=== PATIENT | female | born 1970 | race Caucasian/White ===

== ENCOUNTER 2017-05-19 00:47 | Emergency (ER) | payer BC ==
[2017-05-19 00:52] VITALS: BP 118/75
--- NOTE | 2017-05-19 01:43 | EDM.PDOC ---
ED HPI GENERAL MEDICAL PROBLEM - General Chief Complaint: Chest Pain Stated Complaint: [facility] Time Seen by Provider: 05/19/17 00:57 Source of Information: Reports: Patient History Limitations: Reports: No Limitations - History of Present Illness INITIAL COMMENTS - FREE TEXT/NARRATIVE: The patient states that she developed sudden-onset sharp pain in her left chest while lying in bed around midnight tonight. It was not modifiable. The pain got progressively more intense, associated with shortness of breath and diaphoresis. She denies associated nausea or sense of impending doom. She got up , but thought that she might pass out. The pain improved by the time EMS got to her house, then waxed and waned since. At this time, she feels minimal pain. The patient denies a recent cough. She states that she occasionally has palpitations, but none for several weeks. No recent fever. No recent urinary symptoms. The patient reports similar chest pain in 2008 2009. She states that she ultimately underwent a coronary angiogram which demonstrated coronary spasm. She was prescribed nitroglycerin, and continues to take him to her. She has not had a stress test since. The patient states that she has a PCP, but does not recall their name. Left Chest Pain Score (Numeric/FACES): 10 - Related Data Allergies Allergy/AdvReac Type Severity Reaction Status Date / Time iodine Allergy Cannot Verified 05/19/17 00:50 Remember morphine Allergy Rash Verified 05/19/17 00:50 Penicillins Allergy Syncope Verified 05/19/17 00:50 prochlorperazine edisylate Allergy Anaphylactic Verified 05/19/17 00:50 [From Compazine] Shock prochlorperazine maleate Allergy Anaphylactic Verified 05/19/17 00:50 [From Compazine] Shock vancomycin Allergy Other Verified 05/19/17 00:50 Home Meds: Home Meds Gabapentin [Gabapentin] 800 mg PO TID 05/26/15 [History] Isosorbide Mononitrate [Imdur] 60 mg PO BID 05/26/15 [History] Metoprolol Succinate [Toprol XL] 25 mg PO BID 05/26/15 [History] Nitroglycerin [Nitrostat] 0.4 mg SL Q5M PRN 05/26/15 [History] amLODIPine [Norvasc] 2.5 mg PO DAILY 05/26/15 [History] DULoxetine [Cymbalta] 30 mg PO DAILY 05/19/17 [History] DULoxetine [Cymbalta] 60 mg PO DAILY 05/19/17 [History] Estrovive Herbal Menopause 2 cap PO ASDIRECTED 05/19/17 [History] Ibuprofen/Diphenhydramine Cit [Advil Pm Caplet] 2 cap PO BEDTIME PRN 05/19/17 [ History] Omeprazole 20 mg PO DAILY 05/19/17 [History] Primidone 50 mg PO TID 05/19/17 [History] Vital-Zymes Complete 2 cap PO ASDIRECTED 05/19/17 [History] lamoTRIgine [Lamotrigine] 25 mg PO ASDIRECTED 05/19/17 [History] Past Medical History HEENT History: Reports: Impaired Vision Other HEENT History: Wears glasses Cardiovascular History: Reports: Angina (Prinzmetal angina) BE[employer]ER [employer] P[employer]HER History: Reports: Neurological History: Reports: Migraines - Past Surgical History HEENT Surgical History: Reports: Oral Surgery ([place] teeth extraction), Tonsillectomy Cardiovascular Surgical History: Reports: Other (See Below) (Coronary angiogram 2008 or 2009. Implanted loop monitor, since removed) GI Surgical History: Reports: Cholecystectomy, Colonoscopy, EGD Female Surgical History: Reports: D&C (x 1) Neurological Surgical History: Reports: Lumbar Spine (L4/L5 anterior/posterior fusion) Social & Family History - Tobacco Use Smoking Status *Q: Former Smoker Years of Tobacco use: 13 Packs/Tins Daily: 1.5 Month/Year Tobacco Last Used: Quit 2000 Second Hand Smoke Exposure: No - Alcohol Use Alcohol Use History: Yes Days Per Week of Alcohol Use: 0 Alcohol Use Frequency: Socially - Recreational Drug Use Recreational Drug Use: No - Living Situation & Occupation Living situation: Reports: , with Spouse, with Family (4 kids) 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 ED EXAM, GENERAL - Physical Exam Exam: See Below Exam Limited By: No Limitations General Appearance: Alert, WD/WN, No Apparent Distress Eye Exam: Bilateral Eye: Normal Inspection Ears: Normal External Exam, Hearing Grossly Normal Nose: Normal Inspection, No Blood Throat/Mouth: Normal Inspection, Normal Lips, Normal Voice, No Airway Compromise Head: Atraumatic, Normocephalic Neck: Normal Inspection, Full Range of Motion Respiratory/Chest: No Respiratory Distress, Lungs Clear, Normal Breath Sounds, No Accessory Muscle Use, Other (The patient states that her left chest is "tender" it is not able to say whether or not it is the same pain that brought her to the ED) Cardiovascular: Normal Peripheral Pulses, Regular Rate, Rhythm, No Edema, No Gallop, No JVD, No Rub, Systolic Murmur (Holosystolic, grade 2/6, heard only at the left upper sternal border, consistent with PS) Peripheral Pulses: 4+: Radial (L), Radial (R) GI/Abdominal: Normal Bowel Sounds, Soft, Non-Tender, No Organomegaly, No Distention, No Abnormal Bruit, No Mass, Other (Obese) (Female) Exam: Deferred Rectal (Female) Exam: Deferred Back Exam: Normal Inspection, Full Range of Motion, NT Extremities: Normal Inspection, Normal Range of Motion, No Pedal Edema, Normal Capillary Refill Neurological: Alert, Oriented, Normal Cognition, No Motor/Sensory Deficits Psychiatric: Flat Affect Skin Exam: Warm, Dry, Intact, Normal Color, No Rash EKG INTERPRETATION EKG Date: 05/19/17 Time: 00:50 Rhythm: NSR Rate (Beats/Min): 71 [place]: Normal P-Wave: Present QRS: Normal ST-T: Normal QT: Normal Course - Vital Signs Last Recorded V/S: Last Vital Signs Temp 36.7 C 05/19/17 00:50 Pulse 71 05/19/17 00:50 Resp 15 05/19/17 00:50 BP 118/75 05/19/17 00:50 Pulse Ox 100 05/19/17 00:50 - Orders/Labs/Meds Orders: Active Orders 24 hr Category Date Time Status EKG Documentation Completion [RC] STAT Care 05/19/17 01:16 Active Chest 2V [CR] Stat Exams 05/19/17 01:16 Taken Labs: Laboratory Tests 05/19/17 05/19/17 05/19/17 Range/Units 00:52 00:52 00:52 WBC 10.68 H (3.98-10.04) K/mm3 RBC 4.65 (3.98-5.22) M/mm3 Hgb 14.0 (11.2-15.7) gm/L Hct 41.9 (34.1-44.9) % MCV 90.1 (79.4-94.8) fl MCH 30.1 (25.6-32.2) pg MCHC 33.4 (32.2-35.5) g/dl RDW Std Deviation 42.8 (36.4-46.3) fL Plt Count 324 (182-369) K/mm3 MPV 9.7 (9.4-12.3) fl Neutrophils % (Manual) 28 L (40-60) % Band Neutrophils % 0 (0-10) % Lymphocytes % (Manual) 40 (20-40) % Atypical Lymphs % 2 % Monocytes % (Manual) 5 (2-10) % Eosinophils % (Manual) 25 H (0.7-5.8) % Basophils % (Manual) 0 L (0.1-1.2) Platelet Estimate Adequate Plt Morphology Comment Normal RBC Morph Comment Normal PT 10.5 (8.0-13.0) SECONDS INR 0.98 APTT 26 (22-36) SECONDS D-Dimer, Quantitative 0.24 (0.19-0.59) mg/L Sodium 142 (136-145) mEq/L Potassium 3.8 (3.5-5.1) mEq/L Chloride 105 (98-107) mEq/L Carbon Dioxide 31 (21-32) mEq/L Anion Gap 9.8 (5-15) BUN 14 (7-18) mg/dL Creatinine 1.0 (0.55-1.02) mg/dL Est Cr Clr Drug Dosing 64.41 mL/min Estimated GFR (MDRD) 59 (>60) mL/min BUN/Creatinine Ratio 14.0 (14-18) Glucose 88 (74-106) mg/dL Calcium 8.6 (8.5-10.1) mg/dL Total Bilirubin 0.3 (0.2-1.0) mg/dL AST 43 H (15-37) U/L ALT 43 (14-59) U/L Alkaline Phosphatase 92 (46-116) U/L Troponin I < 0.017 (0.00-0.056) ng/mL NT-Pro-B Natriuret Pep (0-125) pg/mL Total Protein 6.9 (6.4-8.2) g/dl Albumin 4.0 (3.4-5.0) g/dl Globulin 2.9 gm/dL Albumin/Globulin Ratio 1.4 (1-2) 05/19/17 Range/Units 00:52 WBC (3.98-10.04) K/mm3 RBC (3.98-5.22) M/mm3 Hgb (11.2-15.7) gm/L Hct (34.1-44.9) % MCV (79.4-94.8) fl MCH (25.6-32.2) pg MCHC (32.2-35.5) g/dl RDW Std Deviation (36.4-46.3) fL Plt Count (182-369) K/mm3 MPV (9.4-12.3) fl Neutrophils % (Manual) (40-60) % Band Neutrophils % (0-10) % Lymphocytes % (Manual) (20-40) % Atypical Lymphs % % Monocytes % (Manual) (2-10) % Eosinophils % (Manual) (0.7-5.8) % Basophils % (Manual) (0.1-1.2) Platelet Estimate Plt Morphology Comment RBC Morph Comment PT (8.0-13.0) SECONDS INR APTT (22-36) SECONDS D-Dimer, Quantitative (0.19-0.59) mg/L Sodium (136-145) mEq/L Potassium (3.5-5.1) mEq/L Chloride (98-107) mEq/L Carbon Dioxide (21-32) mEq/L Anion Gap (5-15) BUN (7-18) mg/dL Creatinine (0.55-1.02) mg/dL Est Cr Clr Drug Dosing mL/min Estimated GFR (MDRD) (>60) mL/min BUN/Creatinine Ratio (14-18) Glucose (74-106) mg/dL Calcium (8.5-10.1) mg/dL Total Bilirubin (0.2-1.0) mg/dL AST (15-37) U/L ALT (14-59) U/L Alkaline Phosphatase (46-116) U/L Troponin I (0.00-0.056) ng/mL NT-Pro-B Natriuret Pep 138 H (0-125) pg/mL Total Protein (6.4-8.2) g/dl Albumin (3.4-5.0) g/dl Globulin gm/dL Albumin/Globulin Ratio (1-2) - Re-Assessments/Exams Free Text/Narrative Re-Assessment/Exam: 05/19/17 02:33 Two-view chest radiograph appears to be grossly normal. Cardiac silhouette is within normal limits. No pulmonary vascular congestion. No pleural effusions. No focal infiltrate. No pneumothorax. Formal read per the Radiologist pending. 05/19/17 02:35 Test results discussed with the patient and her . Today's workup is entirely unremarkable and does not explain the cause of the patient's pain. I suspect that it is musculoskeletal in etiology, however, I would like the patient to follow-up with her PCP to discuss the possibility of a stress test. The patient is agreeable. Departure - Departure Time of Disposition: 02:36 Disposition: Home, Self-Care 01 Condition: Good Clinical Impression: Chest pain of uncertain etiology - Discharge Information Referrals: Olivia Brooke MD [Primary Care Provider] - Forms: ED Department Discharge Additional Instructions: You were seen in the emergency room for sharp left-sided chest pain, shortness of breath, and sweatiness. Workup in the ER included blood work, a chest x-ray, and an ECG. The entire workup was unremarkable. You have not suffered a heart attack. You do not have a blood clot in your lungs. You do not have pneumonia or a collapsed lung. The cause of your chest pain is unclear, but is MOST LIKELY musculoskeletal in etiology. Take [id number] ibuprofen as needed for discomfort. We recommend that you follow-up with your PCP to discuss the possibility of getting a stress test. If any other problems, please do not hesitate to return to the ER. - My Orders Last 24 Hours: My Active Orders 05/19/17 01:16 EKG Documentation Completion [RC] STAT Chest 2V [CR] Stat - Assessment/Plan Last 24 Hours: My Active Orders 05/19/17 01:16 EKG Documentation Completion [RC] STAT Chest 2V [CR] Stat
[2017-05-19] MEDS ORDERED: Ibuprofen 600 MG Tab PO ONE (02:36)
--- NOTE | 2017-05-19 12:46 | CR ---
Chest: Two views of the chest were obtained. Comparison: Prior chest x-ray of 05/26/15. Heart size and mediastinum are within normal limits. Lungs are clear. Minimal scoliosis is present within the spine. Surgical clips are identified from prior cholecystectomy. Impression: 1. Nothing acute is appreciated on two-view chest x-ray. Diagnostic code #2
== END 2017-05-19 02:51 | disposition home or self-care (01) ==
LOC: JD.ED 00:47
DX: R07.9 Chest pain, unspecified (principal); Z88.5 Allergy status to narcotic agent; Z88.0 Allergy status to penicillin; Z88.1 Allergy status to other antibiotic agents; Z88.8 Allergy status to other drugs, medicaments and biological substances; Z79.899 Other long term (current) drug therapy; Z87.891 Personal history of nicotine dependence
CPT/HCPCS: 36415; 71046; 80053; 83880; 84484; 85025; 85379; 85610; 85730; 93005; 99285; A9270; 93010; 99284-25

== ENCOUNTER 2018-11-11 08:25 | Day surgery (SDC) | payer BC ==
[~2018-11-11 08:25] MED LIST: Lidocaine 1%/Sod Bicarbonate in NS 8.4% 1 ML Syringe IDERM PRN; Sodium Chloride 0.9% 10 ML Syringe FLUSH PRN
[2018-11-11] MEDS ORDERED: Scopolamine 1.5 MG Transdermal Patch TRDERM SCH (08:45)
[2018-11-11] MEDS: Lactated Ringers 1,000 ML IV SCH ×2 (08:55→11:49)
[2018-11-11] MEDS ORDERED: Ondansetron 4 MG/2 ML SDV ONE (09:10)
[2018-11-11] MEDS ORDERED: Rocuronium 50 MG/5 ML Vial ONE (09:10)
[2018-11-11] MEDS ORDERED: fentaNYL 250 MCG/5 ML SDV ONE (09:11)
[2018-11-11] MEDS ORDERED: Midazolam 1 MG/ML 2 ML SDV ONE (09:11)
[2018-11-11] MEDS ORDERED: Propofol 200 MG/20 ML SDV ONE (09:11)
[2018-11-11] MEDS ORDERED: Lidocaine 1% 4 ML ONE (09:11)
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
[2018-11-11] MEDS ORDERED: Sodium Chloride 0.9% 50 ML SDV ONE (09:13)
[2018-11-11] MEDS ORDERED: Lidocaine 1% with EPINEPHrine 1:100,000 20 ML MDV ONE (09:13)
[2018-11-11] MEDS ORDERED: ceFAZolin 1 GM Vial ONE (09:37)
[2018-11-11] MEDS ORDERED: Ketorolac 30 MG/ML SDV ONE (09:39)
[2018-11-11] MEDS ORDERED: HYDROmorphone 0.5 MG/0.5 ML Syringe ONE (10:06)
[2018-11-11] MEDS ORDERED: Dexamethasone 4 MG/ML 5 ML MDV ONE (10:07)
[2018-11-11] MEDS ORDERED: Lactated Ringers 1,000 ML ONE (10:19)
[2018-11-11] MEDS ORDERED: Acetaminophen/oxyCODONE 325-5 MG Tab PO PRN (10:55)
[2018-11-11] MEDS ORDERED: Ondansetron 4 MG/2 ML SDV IVPUSH PRN (10:55)
[2018-11-11] MEDS ORDERED: Ibuprofen 600 MG Tab PO PRN (10:55)
[2018-11-11] MEDS ORDERED: Ketorolac 30 MG/ML SDV IVPUSH SCH (11:00)
--- NOTE | 2018-11-11 11:00 | PCM.OPNOTE ---
- General Post-Op/Procedure Note Date of Surgery/Procedure: 11/11/18 Operative Procedure(s): 1. Exam under anesthesia. 2. Total vaginal hysterectomy with bilateral salpingo-oophorectomy Findings: Uterus is upper limits normal size. Fallopian tubes and ovaries were benign in appearance Pre Op Diagnosis: Postmenopausal uterine bleeding Post-Op Diagnosis: Same Anesthesia Technique: General ET Tube Other Anesthesia Type: Lidocaine quarter percent with [id number] mL total local Primary Surgeon: Mookie Peterson Secondary Surgeon: Mookie Rogers Anesthesia Provider: Bert Krishnan Meat Carrier: Juli Chang Reason Meat Carrier Was Necessary: Retraction, assistance, patient safety, quality of care Pathology: Uterus, bilateral tubes and ovaries Fluid Replacement, Intraop: 1,500 EBL in mLs: 100 Complications: None Condition: Good Free Text/Narrative:: Surgery duration: 33 minutes Procedure: The patient was placed in supine position on the operating table. General endotracheal anesthesia was accomplished. After positioning, and adequate prep and drape, the procedure was then performed. Sterile speculum was placed in the vagina and cervix was visualized. Cervix was injected with lidocaine quarter percent with epinephrine-20 mL used. A full circumference incision was made in the cervical epithelium. The bladder was pushed well back off cervix. Posterior cul-de-sac was then entered sharply without problems. Left uterosacral was crossclamped with a Enseal vessel closure system. The left uterosacral and then the right uterosacral ligament pedicles were developed using the Enseal system. The anterior cul-de-sac was then entered without problems and the uterine vasculature, cardinal ligament and broad ligament then developed using Enseal vessel closure system. The uterus was inverted at this time and upper broad ligament fallopian tube pedicles were crossclamped with Emerald clamps. Specimen was totally removed. Left and right fallopian tube was normal in appearance.. Using Enseal vessel closure system each of the ovaries and fallopian tubes were then removed and sent with the specimen. Each of these pedicles was ligated with #1 Vicryl suture. The patient was found to be hemostatically intact at this time. Vaginal cuff was sutured for hemostatic reasons with a running locked suture of 0 Monocryl from the 2 o'clock position to the 10 o'clock position posteriorly. Vaginal cuff was then closed from right to left side with a running locked suture of 0 Monocryl. Patient was returned to supine position and awakened from general endotracheal anesthesia. She tolerated the procedure and left the operating room in satisfactory condition.
[2018-11-11] MEDS ORDERED: HYDROmorphone 0.5 MG/0.5 ML Syringe IVPUSH PRN (11:06)
[2018-11-11] MEDS ORDERED: fentaNYL 100 MCG/2 ML SDV IVPUSH PRN (11:06)
[2018-11-11 13:37] VITALS: PULSE 68
[2018-11-11 14:58] VITALS: BP 121/72
== END 2018-11-11 14:55 | disposition home or self-care (01) ==
LOC: JD.SDS 08:25
PROVIDERS: ATTEND Obstetrics & Gynecology
DX: N80.0 Endometriosis of uterus (principal); N72 Inflammatory disease of cervix uteri; N73.6 Female pelvic peritoneal adhesions (postinfective); N83.312 Acquired atrophy of left ovary; N83.311 Acquired atrophy of right ovary; N83.8 Other noninflammatory disorders of ovary, fallopian tube and broad ligament; I10 Essential (primary) hypertension; G43.909 Migraine, unspecified, not intractable, without status migrainosus; I73.00 Raynaud's syndrome without gangrene; Z88.0 Allergy status to penicillin; Z88.8 Allergy status to other drugs, medicaments and biological substances; Z88.5 Allergy status to narcotic agent; Z88.1 Allergy status to other antibiotic agents; Z87.891 Personal history of nicotine dependence
CPT/HCPCS: 36415; 58262; 80053; 81003; 85025; 86850; 86900; 86901; 93005; A9270; J0690; J1100; J1170; J1885; J2001; J2250; J2405; J2704; J3010; J7120; 00944

== ENCOUNTER 2018-12-02 14:58 | Emergency (ER) | payer BC ==
[2018-12-02 15:05] VITALS: PULSE 68
[2018-12-02 15:07] VITALS: BP 129/79
[2018-12-02] MEDS ORDERED: FLU Vacc QS2019-20(6MOS+)/PF 60 MCG/0.5 ML SYRINGE IM ONE (15:15)
[2018-12-02] MEDS ORDERED: Sodium Chloride 0.9% 10 ML Syringe FLUSH PRN (15:37)
[2018-12-02] MEDS ORDERED: Sodium Chloride 0.9% 1,000 ML IV SCH (16:15)
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
== END 2018-12-02 18:55 | disposition home or self-care (01) ==
LOC: JD.ED 14:58
DX: I95.9 Hypotension, unspecified (principal); F32.9 Major depressive disorder, single episode, unspecified; Z88.5 Allergy status to narcotic agent; Z88.8 Allergy status to other drugs, medicaments and biological substances; Z88.0 Allergy status to penicillin; Z88.1 Allergy status to other antibiotic agents; Z79.899 Other long term (current) drug therapy; Z90.710 Acquired absence of both cervix and uterus; Z23 Encounter for immunization
CPT/HCPCS: 36415; 80053; 84484; 85025; 90471; 90686; 93005; 96360; 99284; J7040; 81001; 93010; 99283; G0008

== ENCOUNTER 2019-02-17 10:07 | Emergency (ER) | payer BC, OTHER ==
[2019-02-17] MEDS ORDERED: Sodium Chloride 0.9% 10 ML Syringe FLUSH PRN (10:24)
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
[2019-02-17] MEDS ORDERED: diphenhydrAMINE 50 MG/ML SDV IVPUSH ONE (10:59)
[2019-02-17] MEDS ORDERED: Metoclopramide 10 MG/2 ML SDV IVPUSH ONE (10:59)
[2019-02-17] MEDS ORDERED: Dextrose 5%-0.9% NaCl 1,000 ML IV SCH (11:00)
[2019-02-17] MEDS ORDERED: HYDROmorphone 1 MG/ML Syringe IVPUSH ONE (11:00)
--- NOTE | 2019-02-17 11:03 | CT ---
Head CT Technique: Multiple axial sections through the brain were obtained. Intravenous contrast was not utilized. Comparison: Prior head CT study of 05/05/14. Findings: Ventricles along with basal cisterns and sulci with convexities are within normal limits for the patient's age. No abnormal parenchymal densities are seen. No evidence of intracranial hemorrhage. No midline shift or mass effect is seen. Bone window settings were reviewed. Mastoid sinuses are clear. Visualized paranasal sinuses show nothing acute. No acute calvarial abnormality is appreciated. Impression: 1. Nothing acute is appreciated on noncontrast head CT study. Diagnostic code #1 This report was dictated in [place] Standard Time
[2019-02-17 13:05] VITALS: BP 109/66
[2019-02-17 13:35] VITALS: PULSE 64
== END 2019-02-17 13:15 | disposition home or self-care (01) ==
LOC: JD.ED 10:07
DX: G43.109 Migraine with aura, not intractable, without status migrainosus (principal); G40.909 Epilepsy, unspecified, not intractable, without status epilepticus; Z88.5 Allergy status to narcotic agent; Z88.8 Allergy status to other drugs, medicaments and biological substances; Z88.0 Allergy status to penicillin; Z88.1 Allergy status to other antibiotic agents; Z79.899 Other long term (current) drug therapy
CPT/HCPCS: 36415; 70450; 80053; 80306; 80320; 85025; 96361; 96374; 96375; 99284; J1170; J1200; J2765; J7042; G0480

== ENCOUNTER 2019-04-11 12:36 | Observation (INO) | payer BC, MEDICAID ==
[2019-04-11] MEDS ORDERED: diphenhydrAMINE 50 MG Cap PO ONE (12:52)
[2019-04-11] MEDS ORDERED: Famotidine 20 MG Tab PO STA (12:56)
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
[2019-04-11] MEDS ORDERED: Gabapentin 100 MG Cap PO ONE (14:27)
[2019-04-11] MEDS ORDERED: Acetaminophen 325 MG Tab PO PRN (16:26)
[2019-04-11] MEDS ORDERED: Ondansetron 4 MG/2 ML SDV IV PRN (16:26)
[2019-04-11] MEDS ORDERED: diphenhydrAMINE 50 MG/ML SDV IVPUSH PRN (16:29)
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
[2019-04-11] MEDS ORDERED: tiZANidine 4 MG Tab PO PRN (19:56)
[2019-04-11] MEDS ORDERED: Nitroglycerin 0.4 MG Tab.SL SL PRN (19:56)
[2019-04-11] MEDS ORDERED: Primidone 50 MG Tab PO SCH (21:00)
[2019-04-11] MEDS: Metoprolol Succinate 25 MG Tab.ER PO SCH (21:09)
[2019-04-11] MEDS: Gabapentin 100 MG Cap PO SCH (21:10)
[2019-04-12] MEDS: Isosorbide Mononitrate 60 MG Tab.ER PO SCH ×2 (08:42→09:00)
[2019-04-12] MEDS ORDERED: Ketorolac 30 MG/ML SDV IM ONE (08:53)
[2019-04-12] MEDS: Gabapentin 100 MG Cap PO SCH (08:58)
[2019-04-12] MEDS: Metoprolol Succinate 25 MG Tab.ER PO SCH (08:59)
[2019-04-12] MEDS ORDERED: amLODIPine 5 MG Tab PO SCH (09:00)
[2019-04-12] MEDS ORDERED: DULoxetine 30 MG Cap PO SCH (09:00)
[2019-04-12] MEDS ORDERED: Primidone 50 MG Tab PO SCH ×2 (09:00→16:00)
[2019-04-12 11:41] VITALS: BP 91/59; PULSE 79
--- NOTE | 2019-04-12 14:33 | PCM.DCSUM1 ---
Discharge Summary - Hospital Course HPI Initial Comments: Patient is a 48-year-old female with a history of movement disorder and nonepileptic seizures. Patient was placed on Lamictal approximately a year ago with good response in regards to her movement disorder and nonepileptic seizures. Unfortunately, this morning she did develop a new pruritic rash. Patient states that approximately 1030 she took DayQuil (acetaminophen, dextromethorphan, and phenylephrine) for an upper respiratory tract infection and nasal congestion and at approximately 11:30-11:45 she developed this rash. It was generalized rash. Was nonpainful. She has no mucous membrane involvement. Patient states that the rash neff and itches, but is not painful , raised, or blistering. Patient possibly missed one single 100 mg dose of lamotrigine on . She takes a total of 500 mg daily. Was felt that although this does not match a toxic epidermal necrolysis or Manny Lui's type rash because of the risk of severe life-threatening rash with lamotrigine she would be admitted for observation and taken off of lamotrigine. Dr. Appiah, neurologist methane gas collection system operator, was contacted by Dr. Mc to discuss discontinuation of lamotrigine. Because the lamotrigine is used to treat nonepileptic seizures there was no harm to abruptly discontinuing it. He also stated we can treat the burning sensation of the skin with gabapentin 100 mg 3 times daily to 4 times daily. If this is tolerated it can be increased to 300 mg 3 times daily. Patient states that she has been on gabapentin in the past up to 2400 mg in a day. PCP is Dr. Olivia Brooke Neurologist is Dr. Dusty Harvey. Diagnosis: Stroke: No - Discharge Data Discharge Date: 04/12/19 Discharge Disposition: Home, Self-Care 01 Condition: Good - Referral to Home Health Primary Care Physician: Olivia Brooke MD - Patient Summary/Data Hospital Course: Patient was admitted for observation of her rash. He did clear completely by the next morning. She did continue to have some burning of her skin and gabapentin seem to help. Patient is being discharged off her Lamictal and on gabapentin 100 mg 3 times daily. Patient could try DayQuil again to see if this causes a rash after a few days of being off Lamictal. This would allow her to at least see if it was the DayQuil that was causing her rash. She will follow-up with her primary care provider and neurologist. - Patient Instructions Diet: Heart Healthy Diet Driving: May Drive Today Showering/Bathing: June Shower Notify Provider of: Fever Other/Special Instructions: Follow up with pcp and neurologist in next 1 - 2 weeks. - Discharge Plan *PRESCRIPTION DRUG MONITORING PROGRAM REVIEWED*: Not Applicable *COPY OF PRESCRIPTION DRUG MONITORING REPORT IN PATIENT DANII: Not Applicable Prescriptions/Med Rec: Gabapentin [Neurontin] 100 mg PO TID #90 cap Home Medications: Home Meds Cholecalciferol (Vitamin D3) [Vitamin D3] 3,000 unit PO DAILY 10/13/18 [History] DULoxetine HCl [Duloxetine HCl] 60 mg PO DAILY 10/13/18 [History] Isosorbide Mononitrate [Imdur] 60 mg PO BID 10/13/18 [History] Metoprolol Succinate 25 mg PO BID 10/13/18 [History] amLODIPine [Norvasc] 5 mg PO DAILY 10/13/18 [History] tiZANidine [Zanaflex] 4 mg PO BEDTIME PRN 10/13/18 [History] Nitroglycerin 0.4 mg SL ASDIRECTED PRN 12/02/18 [History] Primidone [Mysoline] 50 mg PO 1600 12/02/18 [History] Primidone [Mysoline] 100 mg PO DAILY 12/02/18 [History] Primidone 100 mg PO BEDTIME 04/11/19 [History] Gabapentin [Neurontin] 100 mg PO TID #90 cap 04/12/19 [Rx] Oxygen Therapy Mode: Room Air Forms: ED Department Discharge Referrals: Olivia Brooke MD [Primary Care Provider] - Dusty Harvey MD [Ordering Only Provider] - - Discharge Summary/Plan Comment DC Time >30 min.: No Discharge Summary/Plan Comment: Follow-up with primary care provider and neurologist. Stop Lamictal. Start gabapentin 100 mg 3 times a day. - General Info Date of Service: 04/12/19 Admission Dx/Problem (Free Text: Admission Diagnosis/Problem Admission Diagnosis/Problem Rash of entire body Subjective Update: Doing much better. Rash has resolved. No shortness of breath. - Review of Systems General: Reports: No Symptoms HEENT: Reports: No Symptoms Pulmonary: Reports: No Symptoms Cardiovascular: Reports: No Symptoms Gastrointestinal: Reports: No Symptoms Musculoskeletal: Reports: No Symptoms Neurological: Reports: No Symptoms Psychiatric: Reports: No Symptoms - Patient Data Vitals - Most Recent: Last Vital Signs Temp 97.9 F 04/12/19 11:38 Pulse 79 04/12/19 11:38 Resp 16 04/12/19 11:38 BP 91/59 L 04/12/19 11:38 Pulse Ox 98 04/12/19 11:38 Weight - Most Recent: 170 lb 12.8 oz I&O - Last 24 hours: Intake & Output 04/11/19 04/12/19 04/12/19 22:59 06:59 14:59 Intake Total 400 Output Total 500 Balance -100 Lab Results - Last 24 hrs: Laboratory Results - last 24 hr 04/11/19 04/11/19 Range/Units 14:50 14:50 WBC 8.81 (3.98-10.04) K/mm3 RBC 5.23 H (3.98-5.22) M/mm3 Hgb 15.7 (11.2-15.7) gm/dl Hct 48.0 H (34.1-44.9) % MCV 91.8 (79.4-94.8) fl MCH 30.0 (25.6-32.2) pg MCHC 32.7 (32.2-35.5) g/dl RDW Std Deviation 41.8 (36.4-46.3) fL Plt Count 311 (182-369) K/mm3 MPV 9.5 (9.4-12.3) fl Neutrophils % (Manual) 62 H (40-60) % Band Neutrophils % 3 (0-10) % Lymphocytes % (Manual) 22 (20-40) % Atypical Lymphs % 6 % Monocytes % (Manual) 5 (2-10) % Eosinophils % (Manual) 1 (0.7-5.8) % Basophils % (Manual) 1 (0.1-1.2) Platelet Estimate Adequate RBC Morph Comment Normal Sodium 143 (136-145) mEq/L Potassium 4.2 (3.5-5.1) mEq/L Chloride 105 (98-107) mEq/L Carbon Dioxide 29 (21-32) mEq/L Anion Gap 13.2 (5-15) BUN 17 (7-18) mg/dL Creatinine 1.0 (0.55-1.02) mg/dL Est Cr Clr Drug Dosing 63.71 mL/min Estimated GFR (MDRD) 59 (>60) mL/min BUN/Creatinine Ratio 17.0 (14-18) Glucose 92 (74-106) mg/dL Calcium 9.1 (8.5-10.1) mg/dL Magnesium 2.0 (1.8-2.4) mg/dl Total Bilirubin 0.5 (0.2-1.0) mg/dL AST 17 (15-37) U/L ALT 28 (14-59) U/L Alkaline Phosphatase 77 (46-116) U/L C-Reactive Protein 0.2 (<1.0) mg/dL Total Protein 7.1 (6.4-8.2) g/dl Albumin 4.1 (3.4-5.0) g/dl Globulin 3.0 gm/dL Albumin/Globulin Ratio 1.4 (1-2) HENNA Results - Last 24 hrs: Microbiology 04/11/19 18:10 Quick Strep Confirmation Culture - Preliminary Throat Group A Streptococcus Rapid Screen - Final NEGATIVE STREP A SCREEN REFERENCE RANGE: NEGATIVE Med Orders - Current: Current Medications Acetaminophen (Tylenol) 650 mg PO Q4H PRN PRN Reason: Pain (Mild 1-3)/fever Last Admin: 04/12/19 12:51 Dose: 650 mg Amlodipine Besylate (Norvasc) 5 mg PO DAILY [facility] Last Admin: 04/12/19 09:01 Dose: 5 mg Diphenhydramine HCl (Benadryl) 50 mg IVPUSH Q6H PRN PRN Reason: Rash Duloxetine HCl (Cymbalta) 60 mg PO DAILY [facility] Last Admin: 04/12/19 08:57 Dose: 60 mg Gabapentin (Neurontin) 100 mg PO TID [facility] Last Admin: 04/12/19 08:58 Dose: 100 mg Isosorbide Mononitrate (Imdur) 60 mg PO BID [facility] Last Admin: 04/12/19 09:00 Dose: 60 mg Metoprolol Succinate (Toprol Xl) 25 mg PO BID [facility] Last Admin: 04/12/19 08:59 Dose: 25 mg Nitroglycerin (Nitrostat) 0.4 mg SL ASDIRECTED PRN PRN Reason: Chest Pain Ondansetron HCl (Zofran) 4 mg IV Q4H PRN PRN Reason: Nausea/Vomiting Primidone (Mysoline) 50 mg PO 1600 [facility] Primidone (Mysoline) 100 mg PO DAILY [facility] Last Admin: 04/12/19 08:58 Dose: 100 mg Primidone (Mysoline) 100 mg PO BEDTIME [facility] Last Admin: 04/11/19 21:09 Dose: 100 mg Tizanidine HCl (Zanaflex) 4 mg PO BEDTIME PRN PRN Reason: Anxiety Last Admin: 04/11/19 21:10 Dose: 4 mg Discontinued Medications Diphenhydramine HCl (Benadryl) 50 mg PO ONETIME ONE Stop: 04/11/19 12:53 Last Admin: 04/11/19 13:01 Dose: 50 mg Famotidine (Pepcid) 40 mg PO ONETIME STA Stop: 04/11/19 12:57 Last Admin: 04/11/19 13:01 Dose: 40 mg Gabapentin (Neurontin) 100 mg PO ONETIME ONE Stop: 04/11/19 14:28 Last Admin: 04/11/19 14:41 Dose: 100 mg Ketorolac Tromethamine (Toradol) 30 mg IM ONETIME ONE Stop: 04/12/19 08:54 Last Admin: 04/12/19 09:10 Dose: 30 mg - Exam General: Reports: Alert, Oriented HEENT: Reports: Pupils Equal, Mucous Membr. Moist/[place] Neck: Reports: Supple Lungs: Reports: Clear to Auscultation, Normal Respiratory Effort Cardiovascular: Reports: Regular Rate, Regular Rhythm GI/Abdominal Exam: Normal Bowel Sounds, Soft, Non-Tender, No Organomegaly, No Distention Back Exam: Reports: Normal Inspection Skin: Reports: Warm, Dry, Intact. Denies: Rash Neurological: Reports: No New Focal Deficit Psy/Mental Status: Reports: Alert, Normal Affect, Normal Mood
== END 2019-04-12 14:52 | disposition home or self-care (01) ==
LOC: JD.ED 12:36 → JD.MS 15:00
PROVIDERS: ADMIT Family Medicine; ATTEND Family Medicine
DX: L29.9 Pruritus, unspecified (principal); J06.9 Acute upper respiratory infection, unspecified; G25.89 Other specified extrapyramidal and movement disorders; F32.9 Major depressive disorder, single episode, unspecified; Z79.899 Other long term (current) drug therapy; Z87.891 Personal history of nicotine dependence; Z88.0 Allergy status to penicillin; Z88.1 Allergy status to other antibiotic agents; Z88.5 Allergy status to narcotic agent; Z88.8 Allergy status to other drugs, medicaments and biological substances
CPT/HCPCS: 36415; 80053; 83735; 85007; 85027; 86140; 87081; 87430; A9270; J1885; 96372; 99217; 99219; 99284; G0378

== ENCOUNTER 2019-05-14 15:45 | Emergency (ER) | payer BC, MEDICAID ==
[2019-05-14 16:00] VITALS: BP 133/89; PULSE 65
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
--- NOTE | 2019-05-15 07:50 | CR ---
Chest: Portable view of the chest was obtained. Comparison: Previous chest x-ray of 05/19/17. Heart size and mediastinum are normal. Lungs are clear with no acute parenchymal change. Bony structures are unremarkable. Surgical clips are noted from prior cholecystectomy. Impression: 1. Nothing acute is appreciated on portable chest x-ray. Diagnostic code #1 Study was dictated in MDT
== END 2019-05-14 18:30 | disposition home or self-care (01) ==
LOC: JD.ED 15:45
DX: I30.1 Infective pericarditis (principal); B97.89 Other viral agents as the cause of diseases classified elsewhere; F32.9 Major depressive disorder, single episode, unspecified; Z87.891 Personal history of nicotine dependence; R00.1 Bradycardia, unspecified; Z88.8 Allergy status to other drugs, medicaments and biological substances; Z88.5 Allergy status to narcotic agent; Z88.0 Allergy status to penicillin; Z88.1 Allergy status to other antibiotic agents; Z79.899 Other long term (current) drug therapy
CPT/HCPCS: 36415; 71045; 71045-26; 80053; 82553; 83735; 83880; 84484; 85025; 85379; 85610; 85652; 85730; 86140; 93005; 93010; 99284; 99285-25

== ENCOUNTER 2020-01-05 17:30 | Emergency (ER) | payer BC, MEDICAID ==
[2020-01-05 17:58] VITALS: BP 131/85; PULSE 69
[2020-01-05] MEDS ORDERED: Ondansetron 4 MG/2 ML SDV IVPUSH ONE (18:20)
[2020-01-05] MEDS ORDERED: Sodium Chloride 0.9% 1,000 ML IV STA (18:20)
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
[2020-01-05] MEDS ORDERED: Ketorolac 30 MG/ML SDV IVPUSH ONE (20:23)
== END 2020-01-05 22:10 | disposition home or self-care (01) ==
LOC: JD.ED 17:30
DX: F10.10 Alcohol abuse, uncomplicated (principal); F32.9 Major depressive disorder, single episode, unspecified; R56.9 Unspecified convulsions; Z88.5 Allergy status to narcotic agent; Z88.8 Allergy status to other drugs, medicaments and biological substances; Z88.0 Allergy status to penicillin; Z88.1 Allergy status to other antibiotic agents; Z79.899 Other long term (current) drug therapy; Z87.891 Personal history of nicotine dependence
CPT/HCPCS: 36415; 80053; 80306; 80307; 83735; 85025; 96374; 96375; 99284; J1885; J2405; J7030

== ENCOUNTER 2020-06-30 18:56 | Emergency (ER) | payer BC ==
[2020-06-30 19:10] VITALS: BP 135/70; PULSE 64
[2020-06-30] MEDS ORDERED: Alum Hydrox/Mag Hydrox/Simeth 30 ML, Lidocaine 2% 15 ML PO STA ×2 (19:50)
[2020-06-30] MEDS ORDERED: Sodium Chloride 0.9% 1,000 ML IV ONE (19:52)
[2020-06-30] MEDS ORDERED: Ketorolac 30 MG/ML SDV IVPUSH STA (19:52)
[2020-06-30] MEDS ORDERED: Ondansetron 4 MG/2 ML SDV IVPUSH ONE (19:52)
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
[2020-06-30] MEDS ORDERED: Famotidine 20 MG/2 ML SDV IVPUSH STA (21:06)
--- NOTE | 2020-07-01 08:00 | CR ---
Chest: PA and lateral views of the chest were obtained. Comparison: Prior chest x-ray of 05/14/19. Heart size and mediastinum are normal. Lungs are clear with no acute parenchymal change. Bony structures show mild scoliosis within the spine. Surgical clips are noted from prior cholecystectomy. Impression: 1. Findings which are believed to be incidental. 2. Nothing acute is appreciated on 2 view chest x-ray. Diagnostic code #2
== END 2020-06-30 23:24 | disposition home or self-care (01) ==
LOC: JD.ED 18:56
DX: K21.9 Gastro-esophageal reflux disease without esophagitis (principal); Z88.0 Allergy status to penicillin; Z88.1 Allergy status to other antibiotic agents; Z88.6 Allergy status to analgesic agent; Z88.5 Allergy status to narcotic agent; Z90.49 Acquired absence of other specified parts of digestive tract; Z87.891 Personal history of nicotine dependence
CPT/HCPCS: 36415; 71046; 80053; 83735; 84484; 85007; 85027; 85379; 93005; 96374; 96375; 99284; A9270; J1885; J2405; J3490; J7030; 93010; 99283

== ENCOUNTER 2020-10-25 16:29 | Emergency (ER) | payer BC ==
[2020-10-25 16:39] VITALS: BP 169/112; PULSE 85
[2020-10-25] MEDS: Sodium Chloride 0.9% 10 ML Syringe FLUSH PRN (17:14)
--- NOTE | 2020-10-25 17:45 | CT ---
Head CT Technique: Multiple axial sections through the brain were obtained. Intravenous contrast was not utilized. Reconstructed coronal and sagittal images were obtained. Comparison: No prior intracranial imaging is available. Findings: Ventricles along with basal cisterns and sulci over the convexities are within normal limits for the patient's age. No abnormal parenchymal densities are seen. No evidence of intracranial hemorrhage is seen. Visualized mastoid sinuses and paranasal sinuses show nothing acute. No acute calvarial abnormality is appreciated. Impression: 1. Nothing acute is appreciated on noncontrast head CT study. 2. If patient's symptoms warrant further evaluation, MRI study could be considered. Diagnostic code #1
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
[2020-10-25] MEDS: Metoclopramide 10 MG/2 ML SDV IVPUSH ONE (18:32)
[2020-10-25] MEDS: diphenhydrAMINE 50 MG/ML SDV IVPUSH ONE (18:33)
[2020-10-25] MEDS: Ketorolac 30 MG/ML SDV IVPUSH ONE (18:35)
== END 2020-10-25 19:36 | disposition home or self-care (01) ==
LOC: JD.ED 16:29
DX: K04.7 Periapical abscess without sinus (principal); R00.2 Palpitations; H66.001 Acute suppurative otitis media without spontaneous rupture of ear drum, right ear; Z87.891 Personal history of nicotine dependence; Z88.0 Allergy status to penicillin; Z88.1 Allergy status to other antibiotic agents; Z88.5 Allergy status to narcotic agent; Z88.8 Allergy status to other drugs, medicaments and biological substances
CPT/HCPCS: 36415; 70450; 80053; 83735; 84443; 84484; 85025; 93005; 96374; 96375; 99285; J1200; J1885; J2765; J3360; 93010; 99284

== ENCOUNTER 2020-12-06 13:27 | Emergency (ER) | payer BC ==
[2020-12-06 13:39] VITALS: BP 143/72; PULSE 70
[2020-12-06] MEDS ORDERED: Sodium Chloride 0.9% 10 ML Syringe FLUSH PRN (13:42)
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
--- NOTE | 2020-12-06 15:13 | CR ---
Chest: Portable view of the chest was obtained. Comparison: Prior chest x-ray of 06/30/20. Heart size and mediastinum are within normal limits. Lungs are clear with no acute parenchymal change. Slight scoliosis is noted within the spine. No acute osseous abnormality is seen. Surgical clips are noted from prior cholecystectomy. Impression: 1. Chronic findings. 2. Nothing acute is seen on portable chest x-ray. Diagnostic code #2
== END 2020-12-06 16:06 | disposition home or self-care (01) ==
LOC: JD.ED 13:27
DX: R07.89 Other chest pain (principal); R56.9 Unspecified convulsions; Z88.5 Allergy status to narcotic agent; Z88.8 Allergy status to other drugs, medicaments and biological substances; Z88.0 Allergy status to penicillin; Z88.1 Allergy status to other antibiotic agents; Z79.899 Other long term (current) drug therapy
CPT/HCPCS: 36415; 71045; 71045-26; 80053; 83735; 84484; 85025; 85379; 93005; 99285-25

== ENCOUNTER 2021-02-15 02:50 | Emergency (ER) | payer SELFPAY ==
[2021-02-15 03:17] VITALS: BP 105/69; PULSE 98
--- NOTE | 2021-02-15 03:40 | EDM.PDOC ---
ED HPI GENERAL MEDICAL PROBLEM - General Chief Complaint: Respiratory Problem Stated Complaint: COUGH/WEAK Time Seen by Provider: 02/15/21 02:59 Source of Information: Reports: Patient History Limitations: Reports: No Limitations - History of Present Illness INITIAL COMMENTS - FREE TEXT/NARRATIVE: Mrs. Saleh is a very pleasant 50-year-old woman who now presents the ED stating that she developed a fever, sore throat, general malaise, cough productive of greenish sputum, and dyspnea on and off, since 02/11/2021. Her T-max was 103 degrees. She states that she was seen at the walk-in clinic yesterday, 02/14/2021, where a rapid strep test and a swab for the SARS-CoV-2 virus and influenza A + B viruses were all negative. She states that no blood work or chest x-ray was performed. She states that she was told that she has a viral URI, and was prescribed Tessalon Perles, along with a lidocaine throat spray. She states that the lidocaine throat spray has been working well, but that the Tessalon Perles have not. She has also been taking [id number] Mucinex, which is also not helped. She has also been taking OTC ibuprofen. At triage, the patient was initially found to be slightly tachypneic at 24 rpm, otherwise, she was hemodynamically stable, afebrile, saturating 100% on room air. She appears to be fatigued, anxious, likely hyperventilating, but in no acute distress. Prior to Saturday, the patient denies having a recent fever, chills, sore throat, ear pain, nasal or sinus congestion, cough, dyspnea, chest pain, palpitations, nausea, vomiting, constipation, diarrhea, abdominal pain, urinary symptoms, recent weight gain or weight loss, recent bloody bowel movements or black bowel movements, recent joint aches, headaches, or rashes. The patient's PCP is Dr. Rupa Bahena. Her Neurologist is Dr. Dusty Harvey. Her Medical Secretary is Dr. Antonia Gaytan. She has received 2 Moderna COVID vaccinations, although no influenza vaccination this season. - Related Data Allergies Allergy/AdvReac Type Severity Reaction Status Date / Time No Known Allergies Allergy Verified 02/15/21 03:35 Home Meds: Home Meds Azithromycin 250 mg PO DAILY #6 tablet 02/15/21 [Rx] Past Medical History HEENT History: Reports: Impaired Vision Cardiovascular History: Reports: Arrhythmia (intermittent tachycardia), Other (See Below) (Vasospastic angina) Genitourinary History: Reports: Urinary Incontinence (stress incontinence) Neurological History: Reports: Other (See Below) (Paroxysmal movement disorder, treated with antiepileptic medications and benzodiazepines) Psychiatric History: Reports: Depression - Infectious Disease History Infectious Disease History: Reports: Chicken Pox, Influenza - Past Surgical History HEENT Surgical History: Reports: Oral Surgery (dental extractions), Tonsillectomy Cardiovascular Surgical History: Reports: Other (See Below) (Coronary angiogram 2006, 2012 -> coronary vasospasm) GI Surgical History: Reports: Cholecystectomy (2006) Female Surgical History: Reports: D&C (x 1), Hysterectomy (complete) Neurological Surgical History: Reports: Lumbar Spine (3-level fusion) Social & Family History - Tobacco Use Tobacco Use Status *Q: Former Tobacco User Years of Tobacco use: 16 Packs/Tins Daily: 1.5 Month/Year Tobacco Last Used: Quit 2000 Tobacco Use Comment: Started smoking 1984 - Caffeine Use Caffeine Use: Reports: None - Alcohol Use Alcohol Use History: No - Recreational Drug Use Recreational Drug Use: No - Living Situation & Occupation Living situation: Reports: , with Spouse, with Family (patient's mother, son, + stepson) 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 ED EXAM, GENERAL - Physical Exam Exam: See Below Exam Limited By: No Limitations General Appearance: Alert, WD/WN, Other (Appears fatigued) Eye Exam: Bilateral Eye: EOMI, Normal Inspection Ears: Normal External Exam, Normal Canal, Hearing Grossly Normal, Normal TMs Nose: Normal Inspection, Normal Mucosa, No Blood Throat/Mouth: Normal Inspection, Normal Lips, Normal Teeth, Normal Gums, Normal Oropharynx, Normal Voice, No Airway Compromise Head: Atraumatic, Normocephalic Neck: Normal Inspection, Supple, Non-Tender, Full Range of Motion. No: Lymphadenopathy (L), Lymphadenopathy (R) Respiratory/Chest: No Respiratory Distress, Lungs Clear, Normal Breath Sounds, No Accessory Muscle Use, Chest Non-Tender. No: Respiratory Distress, Decreased Breath Sounds, Crackles, Rhonchi, Wheezing, Prolonged Expiration Cardiovascular: Normal Peripheral Pulses, Regular Rate, Rhythm, No Edema, No Gallop, No JVD, No Murmur, No Rub Peripheral Pulses: 3+: Radial (L), Radial (R) GI/Abdominal: Normal Bowel Sounds, Soft, Non-Tender, No Organomegaly, No Distention, No Abnormal Bruit, No Mass Back Exam: Normal Inspection, Full Range of Motion, NT Extremities: Normal Inspection, Normal Range of Motion, No Pedal Edema, Normal Capillary Refill Neurological: Alert, Oriented, Normal Cognition, No Motor/Sensory Deficits Psychiatric: Anxious Skin Exam: Warm, Dry, Intact, Normal Color, No Rash #1 Interpretation EKG Date: 02/15/21 Time: 02:59 Rhythm: NSR Rate (Beats/Min): 92 [place]: Normal P-Wave: Present QRS: Normal ST-T: Normal QT: Normal Comparison: NA - No Prior EKG Course - Vital Signs Last Recorded V/S: Last Vital Signs Temp 36.4 C 02/15/21 02:58 Pulse 98 02/15/21 02:58 Resp 24 H 02/15/21 02:58 BP 105/69 02/15/21 02:58 Pulse Ox 100 02/15/21 02:58 - Orders/Labs/Meds Labs: Laboratory Tests 02/15/21 02/15/21 02/15/21 Range/Units 03:00 03:00 03:00 WBC 10.05 H (3.98-10.04) K/mm3 RBC 4.37 (3.98-5.22) M/mm3 Hgb 13.5 (11.2-15.7) gm/dl Hct 39.4 (34.1-44.9) % MCV 90.2 (79.4-94.8) fl MCH 30.9 (25.6-32.2) pg MCHC 34.3 (32.2-35.5) g/dl RDW Std Deviation 41.9 (36.4-46.3) fL Plt Count 414 H (182-369) K/mm3 MPV 9.6 (9.4-12.3) fl Neutrophils % (Manual) 51 (40-60) % Band Neutrophils % 8 (0-10) % Lymphocytes % (Manual) 29 (20-40) % Atypical Lymphs % 0 % Monocytes % (Manual) 10 (2-10) % Eosinophils % (Manual) 1 (0.7-5.8) % Basophils % (Manual) 1 (0.1-1.2) Platelet Estimate Increased Stomatocytes 1+ slight RBC Morph Comment Not Reportable D-Dimer, Quantitative 0.38 (0.19-0.50) mg/L Puncture Site ABG pH (7.35-7.45) ABG pCO2 (35.0-45.0) mmHg ABG pO2 (80.0-100.0) mmHg ABG HCO3 (22.0-26.0) meq/L ABG O2 Saturation (96.0-97.0) % ABG Base Excess (-2-2.0) Mane Test A-a Gradient mmHg O2 Delivery Device Sodium 141 (136-145) mEq/L Potassium 3.6 (3.5-5.1) mEq/L Chloride 101 (98-107) mEq/L Carbon Dioxide 29 (21-32) mEq/L Anion Gap 14.6 (5-15) BUN 11 (7-18) mg/dL Creatinine 1.1 H (0.55-1.02) mg/dL Est Cr Clr Drug Dosing 56.64 mL/min Estimated GFR (MDRD) 52 (>60) mL/min BUN/Creatinine Ratio 10.0 L (14-18) Glucose 98 (70-99) mg/dL Lactic Acid (0.4-2.0) mmol/L Calcium 9.0 (8.5-10.1) mg/dL Total Bilirubin 0.4 (0.2-1.0) mg/dL AST 22 (15-37) U/L ALT 38 (14-59) U/L Alkaline Phosphatase 110 (46-116) U/L C-Reactive Protein 10.0 H* (<1.0) mg/dL NT-Pro-B Natriuret Pep (0-125) pg/mL Total Protein 7.4 (6.4-8.2) g/dl Albumin 4.1 (3.4-5.0) g/dl Globulin 3.3 gm/dL Albumin/Globulin Ratio 1.2 (1-2) Influenza Type A RNA (NEGATIVE) Influenza Type B RNA (NEGATIVE) SARS-CoV-2 RNA (KATHARINE) (NEGATIVE) 02/15/21 02/15/21 02/15/21 Range/Units 03:00 03:01 03:46 WBC (3.98-10.04) K/mm3 RBC (3.98-5.22) M/mm3 Hgb (11.2-15.7) gm/dl Hct (34.1-44.9) % MCV (79.4-94.8) fl MCH (25.6-32.2) pg MCHC (32.2-35.5) g/dl RDW Std Deviation (36.4-46.3) fL Plt Count (182-369) K/mm3 MPV (9.4-12.3) fl Neutrophils % (Manual) (40-60) % Band Neutrophils % (0-10) % Lymphocytes % (Manual) (20-40) % Atypical Lymphs % % Monocytes % (Manual) (2-10) % Eosinophils % (Manual) (0.7-5.8) % Basophils % (Manual) (0.1-1.2) Platelet Estimate Stomatocytes RBC Morph Comment D-Dimer, Quantitative (0.19-0.50) mg/L Puncture Site Rt radial ABG pH 7.40 (7.35-7.45) ABG pCO2 42.1 (35.0-45.0) mmHg ABG pO2 57.0 L (80.0-100.0) mmHg ABG HCO3 25.4 (22.0-26.0) meq/L ABG O2 Saturation 92.7 L (96.0-97.0) % ABG Base Excess 1.0 (-2-2.0) Mane Test Positive A-a Gradient 40 mmHg O2 Delivery Device Room air Sodium (136-145) mEq/L Potassium (3.5-5.1) mEq/L Chloride (98-107) mEq/L Carbon Dioxide (21-32) mEq/L Anion Gap (5-15) BUN (7-18) mg/dL Creatinine (0.55-1.02) mg/dL Est Cr Clr Drug Dosing mL/min Estimated GFR (MDRD) (>60) mL/min BUN/Creatinine Ratio (14-18) Glucose (70-99) mg/dL Lactic Acid (0.4-2.0) mmol/L Calcium (8.5-10.1) mg/dL Total Bilirubin (0.2-1.0) mg/dL AST (15-37) U/L ALT (14-59) U/L Alkaline Phosphatase (46-116) U/L C-Reactive Protein (<1.0) mg/dL NT-Pro-B Natriuret Pep 132 H (0-125) pg/mL Total Protein (6.4-8.2) g/dl Albumin (3.4-5.0) g/dl Globulin gm/dL Albumin/Globulin Ratio (1-2) Influenza Type A RNA Negative (NEGATIVE) Influenza Type B RNA Negative (NEGATIVE) SARS-CoV-2 RNA (KATHARINE) Negative (NEGATIVE) 02/15/21 Range/Units 04:18 WBC (3.98-10.04) K/mm3 RBC (3.98-5.22) M/mm3 Hgb (11.2-15.7) gm/dl Hct (34.1-44.9) % MCV (79.4-94.8) fl MCH (25.6-32.2) pg MCHC (32.2-35.5) g/dl RDW Std Deviation (36.4-46.3) fL Plt Count (182-369) K/mm3 MPV (9.4-12.3) fl Neutrophils % (Manual) (40-60) % Band Neutrophils % (0-10) % Lymphocytes % (Manual) (20-40) % Atypical Lymphs % % Monocytes % (Manual) (2-10) % Eosinophils % (Manual) (0.7-5.8) % Basophils % (Manual) (0.1-1.2) Platelet Estimate Stomatocytes RBC Morph Comment D-Dimer, Quantitative (0.19-0.50) mg/L Puncture Site ABG pH (7.35-7.45) ABG pCO2 (35.0-45.0) mmHg ABG pO2 (80.0-100.0) mmHg ABG HCO3 (22.0-26.0) meq/L ABG O2 Saturation (96.0-97.0) % ABG Base Excess (-2-2.0) Mane Test A-a Gradient mmHg O2 Delivery Device Sodium (136-145) mEq/L Potassium (3.5-5.1) mEq/L Chloride (98-107) mEq/L Carbon Dioxide (21-32) mEq/L Anion Gap (5-15) BUN (7-18) mg/dL Creatinine (0.55-1.02) mg/dL Est Cr Clr Drug Dosing mL/min Estimated GFR (MDRD) (>60) mL/min BUN/Creatinine Ratio (14-18) Glucose (70-99) mg/dL Lactic Acid 1.0 (0.4-2.0) mmol/L Calcium (8.5-10.1) mg/dL Total Bilirubin (0.2-1.0) mg/dL AST (15-37) U/L ALT (14-59) U/L Alkaline Phosphatase (46-116) U/L C-Reactive Protein (<1.0) mg/dL NT-Pro-B Natriuret Pep (0-125) pg/mL Total Protein (6.4-8.2) g/dl Albumin (3.4-5.0) g/dl Globulin gm/dL Albumin/Globulin Ratio (1-2) Influenza Type A RNA (NEGATIVE) Influenza Type B RNA (NEGATIVE) SARS-CoV-2 RNA (KATHARINE) (NEGATIVE) - Re-Assessments/Exams Free Text/Narrative Re-Assessment/Exam: 02/15/21 03:37 An ECG and swab for the SARS-CoV-2 virus and influenza A + B viruses was collected at triage. I have ordered a work-up and includes several blood tests, 2 sets of blood cultures, an ABG, and a chest x-ray. 02/15/21 05:09 Two-view chest radiograph appears to be grossly normal. The cardiac silhouette is within normal limits. No pulmonary vascular congestion. No pleural effusions. No focal infiltrate. No pneumothorax. Formal read per the Radiologist pending. The patient's CBC is remarkable for mild leukocytosis of 10.05, but with 8% bandemia, and thrombocytosis of 414,000, with remainder of her CBC being unremarkable. Her CMP is unremarkable. Her lactic acid level is within normal limits at 1.0. Her CRP is significantly elevated at 10.0. Her D-dimer is within normal limits at 0.38. Her ABG demonstrates a primary metabolic acidosis with an appropriately compensated secondary respiratory acidosis. Her swab for the SARS-CoV-2 virus and influenza A + B viruses is negative for all. Notified that the labs chemistry machine is down, therefore the pro-BNP will not be able to be run until later today. 02/15/21 05:53 Case discussed with Helga at [facility] at 05:38. Unfortunately, they do not have an infectious disease specialist computational physicist. Case then discussed with Chacho at [facility] at 05:41. Case then discussed with Dr. Sánchez, Infectious Disease specialist at [facility], at 05:49. He agreed that the patient is most likely suffering from a viral illness, which could be RSV, but he stated that the patient could also have a subclinical mycoplasma or chlamydia pneumonia. He therefore recommended treatment with a 5-day course of either azithromycin or levofloxacin. 02/15/21 05:[address] Sánchez discussed with the patient. I will submit a prescription for a Z-Agustín. I recommended that she discontinue taking the Mucinex and Tessalon Perles, but she can continue to take OTC ibuprofen as needed for discomfort. She should stay adequately hydrated. Departure - Departure Time of Disposition: 05:58 Disposition: Home, Self-Care 01 Condition: Good Clinical Impression: Viral URI with cough - Discharge Information *PRESCRIPTION DRUG MONITORING PROGRAM REVIEWED*: Not Applicable *COPY OF PRESCRIPTION DRUG MONITORING REPORT IN PATIENT DANII: Not Applicable Prescriptions: Azithromycin 250 mg PO DAILY #6 tablet Referrals: Rupa Bahena MD [Primary Care Provider] - Dusty Harvey MD [Ordering Only Provider] - Antonia Gaytan MD [Ordering Only Provider] - Forms: ED Department Discharge Additional Instructions: You were seen in the emergency room for a fever, sore throat, general malaise, cough, and shortness of breath. Work-up in the ER included numerous blood tests, 2 sets of blood cultures, an arterial blood gas, a swab for the SARS-CoV-2 virus and influenza A + B viruses, a chest x-ray, and an ECG. Your blood work showed some signs concerning for bacterial infection, otherwise, your work-up was unremarkable. You do not have pneumonia. You do not have COVID-19. You do not have influenza. You do not have a blood clot in your lungs. Your case was discussed with an infectious disease specialist in [place], who felt that you are most likely suffering from a viral illness, but to cover the possibility of a bacterial infection, he recommended that you be treated with a 5-day course of the antibiotic azithromycin, also known as a Z-Agustín. A prescription for a Z-Agustín has been sent to the [place] pharmacy located in the [employer] store. Take 2 tablets (500 mg) of azithromycin today, 02/15/2021, then 1 tablet (250 mg) every day starting tomorrow, , 02/16/2021, for 4 days, until the prescription is finished. Stay adequately hydrated. You may continue to take [id number] ibuprofen as needed for discomfort, however, we recommend that you discontinue taking Mucinex, Tessalon Perles, or any other [id number] cough or cold remedies, as they have been shown to be of no benefit, but do have side effects, such as an upset stomach. If any other problems, please do not hesitate to return to the ER. Sepsis Event Note (ED) - Evaluation Sepsis Screening Result: No Definite Risk
[2021-02-15 04:28] LABS: CORONAVIRUS COVID-19 NAA NEGATIVE (NEGATIVE)
--- NOTE | 2021-02-15 07:37 | CR ---
Chest: PA and lateral views of the chest were obtained. Comparison: No prior chest imaging is available. Heart size and mediastinum are within normal limits. Lungs are clear with no acute parenchymal change. Bony structures appear within normal limits for the patient's age. Surgical clips are noted from prior cholecystectomy. Impression: 1. Nothing acute is seen on 2-view chest x-ray. Diagnostic code #1
== END 2021-02-15 06:47 | disposition home or self-care (01) ==
LOC: JD.ED 02:50 → MERGE 02:50 → JD.ED 06:47
DX: J06.9 Acute upper respiratory infection, unspecified (principal); Z87.891 Personal history of nicotine dependence; Z20.822 Contact with and (suspected) exposure to COVID-19
CPT/HCPCS: 0240U; 36415; 36600; 71046; 80053; 82803; 83605; 83880; 85007; 85027; 85379; 86140; 87040; 93005; 99285

== ENCOUNTER 2021-02-17 08:41 | Emergency (ER) | payer BC ==
[2021-02-17] MEDS ORDERED: Sodium Chloride 0.9% 10 ML Syringe FLUSH PRN (08:59)
[2021-02-17] MEDS ORDERED: Sodium Chloride 0.9% 1,000 ML IV SCH (09:00)
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
[2021-02-17 11:00] LABS: CORONAVIRUS COVID-19 NAA NEGATIVE (NEGATIVE)
[2021-02-17 11:39] VITALS: BP 116/71; PULSE 99
--- NOTE | 2021-02-17 12:30 | CR ---
Chest: Portable view of the chest was obtained. Comparison: Chest x-ray of 12/06/20. Film technique is somewhat dark. Lungs are grossly clear. Heart size and mediastinum are normal. Bony structures show nothing acute. Slight scoliosis is noted within the spine. Impression: 1. Somewhat dark technique. No definite acute intrathoracic process is seen. Diagnostic code #2
== END 2021-02-17 12:25 | disposition home or self-care (01) ==
LOC: JD.ED 08:41 → SUPCPDRO 08:41 → JD.ED 12:25
DX: J40 Bronchitis, not specified as acute or chronic (principal); J06.9 Acute upper respiratory infection, unspecified; Z88.5 Allergy status to narcotic agent; Z88.1 Allergy status to other antibiotic agents; Z88.8 Allergy status to other drugs, medicaments and biological substances; Z20.822 Contact with and (suspected) exposure to COVID-19
CPT/HCPCS: 0240U; 36415; 71045; 80053; 85007; 85027; 86140; 93005; 99284; J7030; 93010; 99285

== ENCOUNTER 2021-03-30 10:18 | Emergency (ER) | payer BC, MEDICAID ==
[2021-03-30] MEDS ORDERED: Sodium Chloride 0.9% 10 ML Syringe FLUSH PRN (10:21)
[2021-03-30] MEDS ORDERED: methylPREDNISolone Sodium Succinate 125 MG/2 ML SDV IVPUSH ONE (10:23)
[2021-03-30] MEDS ORDERED: Famotidine 20 MG/2 ML SDV IVPUSH ONE (10:23)
[2021-03-30] MEDS ORDERED: Sodium Chloride 0.9% 1,000 ML IV SCH (10:30)
[2021-03-30 19:33] VITALS: BP 118/57; PULSE 74
== END 2021-03-30 14:30 | disposition home or self-care (01) ==
LOC: JD.ED 10:18
DX: R55 Syncope and collapse (principal); T36.0X5A Adverse effect of penicillins, initial encounter; Z88.5 Allergy status to narcotic agent; Z88.0 Allergy status to penicillin; Z88.1 Allergy status to other antibiotic agents
CPT/HCPCS: 36415; 80053; 84484; 85025; 93005; 96374; 96375; 99283-25; J2930; J3490; J7030

== ENCOUNTER 2021-05-29 16:54 | Emergency (ER) | payer BC ==
[2021-05-29 17:16] VITALS: BP 136/81; PULSE 95
== END 2021-05-29 21:12 | disposition home or self-care (01) ==
LOC: JD.ED 16:54
DX: M21.371 Foot drop, right foot (principal); Z88.0 Allergy status to penicillin; Z88.1 Allergy status to other antibiotic agents; Z88.5 Allergy status to narcotic agent; Z88.8 Allergy status to other drugs, medicaments and biological substances; Z87.891 Personal history of nicotine dependence
CPT/HCPCS: 70450; 70450-26; 99283-25; 99284

== ENCOUNTER 2023-10-14 08:55 | Emergency (ER) | payer BC ==
[2023-10-14 09:31] LABS: BASOPHILS ABSOLUTE AUTO 0.1 K/mm3 (0.0-0.2); BASOPHILS PERCENT AUTO 1.5 % (0.0-1.0); EOSINOPHILS ABSOLUTE AUTO 0.2 K/mm3 (0.0-0.4); EOSINOPHILS PERCENT AUTO 3.5 % (0.0-6.0); HEMATOCRIT 40.8 % (37.0-47.0); HEMOGLOBIN 13.6 gm/dl (12.0-16.0); IMMATURE GRAN ABSOLUTE AUTO 0.01 K/mm3 (0.00-0.05); IMMATURE GRAN PERCENT AUTO 0.2 % (0.0-0.4); LYMPHOCYTES ABSOLUTE AUTO 2.1 K/mm3 (1.0-4.8); LYMPHOCYTES PERCENT AUTO 44.6 % (24.0-44.0); MEAN CORPUSCULAR HEMOGLOBIN 30.2 pg (28.0-32.0); MEAN CORPUSCULAR HGB CONC 33.3 g/dl (32.0-36.0); MEAN CORPUSCULAR VOLUME 90.5 fl (83.0-99.0); MEAN PLATELET VOLUME 9.1 fl (9.4-12.3); MONOCYTES ABSOLUTE AUTO 0.4 K/mm3 (0.0-0.8); MONOCYTES PERCENT AUTO 7.6 % (0.0-8.0); NEUTROPHILS PERCENT AUTO 42.6 % (41.0-71.0); PLATELET COUNT,PLT 269 K/mm3 (150-400); RED BLOOD CELL COUNT 4.51 M/mm3 (4.10-5.30)
[2023-10-14] MEDS: Dextrose 5%-0.9% NaCl 1,000 ML IV SCH (09:33)
[2023-10-14] MEDS: Ondansetron 4 MG/2 ML SDV IVPUSH ONE ×3 (09:35→15:28)
[2023-10-14] MEDS: HYDROmorphone 0.5 MG/0.5 ML Syringe IVPUSH ONE (09:35)
[2023-10-14 09:52] LABS: INR 1.01; PROTHROMBIN TIME 10.7 SECONDS (9.7-12.0)
[2023-10-14 09:54] LABS: PTT,PARTIAL THROMBOPLSTIN TIME 27.1 SECONDS (21.7-31.4)
[2023-10-14 09:58] LABS: A/G RATIO 1.6 (1-2); ALANINE AMINOTRANSFERASE,ALT 33 U/L (14-59); ALBUMIN 3.8 g/dl (3.4-5.0); ALKALINE PHOSPHATASE 67 U/L (46-116); ANION GAP 9.4 (5-15); ASPARTATE AMNIOTRANSFERASE,AST 21 U/L (15-37); BILIRUBIN TOTAL 0.3 mg/dL (0.2-1.0); BLOOD UREA NITROGEN,BUN 20 mg/dL (7-18); CALCIUM 8.4 mg/dL (8.5-10.1); CARBON DIOXIDE,CO2 29 mEq/L (21-32); CHLORIDE,CL 106 mEq/L (98-107); EST CRCL DRUG DOSING (CG) 60.21 mL/min; ESTIMATED GFR 67 mL/min (>60); GLUCOSE RANDOM 97 mg/dL (70-99); MAGNESIUM 1.8 mg/dL (1.8-2.4); POTASSIUM,K 4.4 mEq/L (3.5-5.1); PROTEIN TOTAL,TP 6.2 g/dl (6.4-8.2); SODIUM,NA 140 mEq/L (136-145)
[2023-10-14 09:59] LABS: C-REACTIVE PROTEIN < 0.05 mg/dL (<0.30)
[2023-10-14 10:05] LABS: LACTIC ACID 0.6 mmol/L (0.4-2.0)
[2023-10-14] MEDS: HYDROmorphone 1 MG/ML Syringe IVPUSH ONE ×2 (10:16→12:32)
[2023-10-14] MEDS: LORazepam 2 MG/ML SDV IVPUSH ONE (15:29)
[2023-10-14 16:09] LABS: APPEARANCE,URINE CLEAR (Clear); BILIRUBIN,URINE NEGATIVE (Negative); COLOR,URINE YELLOW (Yellow); GLUCOSE,URINE NEGATIVE (Negative); KETONES,URINE NEGATIVE (Negative); LEUKOCYTE ESTERASE,URINE NEGATIVE (Negative); NITRITE,URINE NEGATIVE (Negative); OCCULT BLOOD,URINE NEGATIVE (Negative); PH,URINE 5.5 (5.0-8.0); PROTEIN,URINE NEGATIVE (Negative); UROBILINOGEN,URINE 0.2 (0.2-1.0)
[2023-10-14] MEDS: Metoclopramide 10 MG/2 ML SDV IVPUSH ONE (16:18)
[2023-10-14] MEDS: diphenhydrAMINE 50 MG/ML SDV IVPUSH ONE (16:20)
[2023-10-14 18:20] VITALS: BP 109/72; PULSE 70
== END 2023-10-14 18:10 | disposition home or self-care (01) ==
LOC: JD.ED 08:55
DX: M54.2 Cervicalgia (principal); M54.50 Low back pain, unspecified; G25.9 Extrapyramidal and movement disorder, unspecified; R29.818 Other symptoms and signs involving the nervous system; Z88.0 Allergy status to penicillin; Z88.1 Allergy status to other antibiotic agents; Z88.5 Allergy status to narcotic agent; Z88.8 Allergy status to other drugs, medicaments and biological substances; Z79.899 Other long term (current) drug therapy
CPT/HCPCS: 36415; 70450; 80053; 81003; 82947; 83605; 83735; 85025; 85610; 85730; 86140; 96361; 96374; 96375; 96376; 99285; J1170; J1200; J2060; J2405; J2765; J3360; J7042; 99284

== ENCOUNTER 2024-04-15 17:28 | Emergency (ER) | payer BC, MEDICAID ==
[2024-04-15 18:19] LABS: BASOPHILS ABSOLUTE AUTO 0.1 K/mm3 (0.0-0.2); BASOPHILS PERCENT AUTO 0.8 % (0.0-1.0); EOSINOPHILS ABSOLUTE AUTO 0.1 K/mm3 (0.0-0.4); EOSINOPHILS PERCENT AUTO 1.7 % (0.0-6.0); HEMATOCRIT 40.6 % (37.0-47.0); HEMOGLOBIN 13.3 gm/dl (12.0-16.0); IMMATURE GRAN ABSOLUTE AUTO 0.02 K/mm3 (0.00-0.05); IMMATURE GRAN PERCENT AUTO 0.3 % (0.0-0.4); LYMPHOCYTES ABSOLUTE AUTO 2.6 K/mm3 (1.0-4.8); LYMPHOCYTES PERCENT AUTO 39.6 % (24.0-44.0); MEAN CORPUSCULAR HEMOGLOBIN 29.1 pg (28.0-32.0); MEAN CORPUSCULAR HGB CONC 32.8 g/dl (32.0-36.0); MEAN CORPUSCULAR VOLUME 88.8 fl (83.0-99.0); MEAN PLATELET VOLUME 9.4 fl (9.4-12.3); MONOCYTES ABSOLUTE AUTO 0.5 K/mm3 (0.0-0.8); MONOCYTES PERCENT AUTO 7.8 % (0.0-8.0); NEUTROPHILS ABSOLUTE AUTO 3.3 K/mm3 (1.8-7.7); NEUTROPHILS PERCENT AUTO 49.8 % (41.0-71.0); PLATELET COUNT,PLT 298 K/mm3 (150-400); RED BLOOD CELL COUNT 4.57 M/mm3 (4.10-5.30); WHITE BLOOD CELL COUNT,WBC 6.57 K/mm3 (3.9-11.3)
[2024-04-15 18:44] LABS: PROTHROMBIN TIME 10.6 SECONDS (9.7-12.0)
[2024-04-15 18:45] LABS: PTT,PARTIAL THROMBOPLSTIN TIME 27.1 SECONDS (21.7-31.4)
[2024-04-15 18:48] LABS: D-DIMER QUANTITATIVE < 0.19 mg/L (0.19-0.50)
[2024-04-15 19:01] LABS: A/G RATIO 1.3 (1-2); ALBUMIN 3.7 g/dl (3.4-5.0); BILIRUBIN TOTAL 0.3 mg/dL (0.2-1.0); BUN/CREATININE RATIO 12.2 (14-18); CALCIUM 8.7 mg/dL (8.5-10.1); CREATININE 0.9 mg/dL (0.55-1.02); EST CRCL DRUG DOSING (CG) 66.9 mL/min; MAGNESIUM 1.7 mg/dL (1.8-2.4); PROTEIN TOTAL,TP 6.6 g/dl (6.4-8.2)
[2024-04-15] MEDS: Magnesium Oxide 400 MG Tab PO ONE (20:19)
[2024-04-15] MEDS: Ketorolac 30 MG/ML SDV IVPUSH ONE (20:19)
[2024-04-16 00:06] VITALS: BP 112/74; PULSE 62
== END 2024-04-15 21:56 | disposition home or self-care (01) ==
LOC: JD.ED 17:28
DX: R07.89 Other chest pain (principal); M54.6 Pain in thoracic spine; M54.2 Cervicalgia; Z90.49 Acquired absence of other specified parts of digestive tract; Z90.710 Acquired absence of both cervix and uterus; Z79.899 Other long term (current) drug therapy; Z88.0 Allergy status to penicillin; Z88.1 Allergy status to other antibiotic agents; Z88.5 Allergy status to narcotic agent; Z88.8 Allergy status to other drugs, medicaments and biological substances
CPT/HCPCS: 36415; 71045; 71045-26; 80053; 83735; 83880; 84484; 85025; 85379; 85610; 85730; 87428-QW; 93005; 93010; 96374; 99284; 99285-25; A9270-GY; J1885

== ENCOUNTER 2024-09-15 19:47 | Emergency (ER) | payer BC ==
[2024-09-15] MEDS: Sodium Chloride 0.9% 10 ML Syringe FLUSH PRN (20:10)
[2024-09-15 20:17] LABS: BASOPHILS ABSOLUTE AUTO 0.1 K/mm3 (0.0-0.2); BASOPHILS PERCENT AUTO 0.9 % (0.0-1.0); EOSINOPHILS ABSOLUTE AUTO 0.2 K/mm3 (0.0-0.4); EOSINOPHILS PERCENT AUTO 3.0 % (0.0-6.0); IMMATURE GRAN ABSOLUTE AUTO 0.02 K/mm3 (0.00-0.05); IMMATURE GRAN PERCENT AUTO 0.3 % (0.0-0.4); LYMPHOCYTES ABSOLUTE AUTO 4.0 K/mm3 (1.0-4.8); LYMPHOCYTES PERCENT AUTO 52.3 % (24.0-44.0); MEAN PLATELET VOLUME 9.2 fl (9.4-12.3); MONOCYTES ABSOLUTE AUTO 0.5 K/mm3 (0.0-0.8); MONOCYTES PERCENT AUTO 6.6 % (0.0-8.0); NEUTROPHILS ABSOLUTE AUTO 2.8 K/mm3 (1.8-7.7); NEUTROPHILS PERCENT AUTO 36.9 % (41.0-71.0); NRBC ABSOLUTE 0.00 (0.00-0.02); NRBC PERCENT 0.0 % (0.0-0.2); PLATELET COUNT,PLT 314 K/mm3 (150-400); RED BLOOD CELL COUNT 4.64 M/mm3 (4.10-5.30); WHITE BLOOD CELL COUNT,WBC 7.57 K/mm3 (3.9-11.3)
[2024-09-15 20:49] LABS: A/G RATIO 1.4 (1-2); ALANINE AMINOTRANSFERASE,ALT 42.0 U/L (14-59); ASPARTATE AMNIOTRANSFERASE,AST 26.0 U/L (15-37); BILIRUBIN TOTAL 0.2 mg/dL (0.2-1.0); BLOOD UREA NITROGEN,BUN 17.0 mg/dL (7-18); CARBON DIOXIDE,CO2 31.0 mEq/L (21-32); CHLORIDE,CL 106.0 mEq/L (98-107); CREATININE 0.9 mg/dL (0.55-1.02); EST CRCL DRUG DOSING (CG) 66.12 mL/min; ESTIMATED GFR 76.0 mL/min (>60); GLUCOSE RANDOM 108.0 mg/dL (70-99); PHOSPHORUS 3.9 mg/dL (2.6-4.7); POTASSIUM,K 3.8 mEq/L (3.5-5.1); PROTEIN TOTAL,TP 6.6 g/dl (6.4-8.2); SODIUM,NA 143.0 mEq/L (136-145); TROPONIN I HIGH SENSITIVITY 5.0 pg/mL (<=51)
[2024-09-15 21:14] LABS: APPEARANCE,URINE CLEAR (Clear); GLUCOSE,URINE NEGATIVE (Negative); OCCULT BLOOD,URINE NEGATIVE (Negative)
[2024-09-15 21:23] LABS: SQUAMOUS EPITHELIAL CELLS,UR 0-5 /hpf (0-5)
[2024-09-16 01:54] VITALS: BP 114/78; PULSE 78
[2024-09-19 04:46] LABS: INTACT PTH 66 pg/mL (15-65)
== END 2024-09-16 01:35 | disposition home or self-care (01) ==
LOC: JD.ED 19:47
DX: E83.51 Hypocalcemia (principal); E86.0 Dehydration; Z90.49 Acquired absence of other specified parts of digestive tract; Z90.710 Acquired absence of both cervix and uterus; Z88.0 Allergy status to penicillin; Z88.5 Allergy status to narcotic agent; Z88.8 Allergy status to other drugs, medicaments and biological substances; Z79.899 Other long term (current) drug therapy
CPT/HCPCS: 36415; 71045; 80053; 81001; 82306; 82550; 83605; 83735; 83880; 83970; 84100; 84484; 85025; 85379; 93005; 96360; 96361; 99285; A9270; J7030; 93010; 99283